=== PATIENT | female | born 1950 | race Hispanic/Latino ===

== ENCOUNTER → 2017-11-03 | Outpatient (CLI) | payer MEDICARE ==
[~2017-11-03] MED LIST: ASPI-1197 PO; LEVO25TA54 PO; OMEP40CA37 PO; ROSU5TAB PO
== END | disposition home or self-care (01) ==
LOC: RAH 08:22
PROVIDERS: ATTEND Internal Medicine Cardiovascular Disease
DX: R00.2 Palpitations (principal); R07.9 Chest pain, unspecified
CPT/HCPCS: 78452; 93017; A9500 ×2

== ENCOUNTER 2020-06-13 17:32 | Emergency (ER) | payer MEDICARE ==
[~2020-06-13 17:32] MED LIST changes: +OMEP40CA13 PO; -OMEP40CA37 PO
[2020-06-13 18:00] LABS: BASOPHILS % (AUTO) 0.4 % (0.0-5.0); EOSINOPHILS % (AUTO) 1.7 % (0.0-8.0); HEMATOCRIT 39.5 % (36-48); LYMPHOCYTES % (AUTO) 37.7 % (21.0-51.0); MEAN CORPUSCULAR HEMOGLOBIN 28.8 pg (27.0-33.0); MEAN CORPUSCULAR HGB CONC 33.4 g/dL (32.0-36.0); MEAN CORPUSCULAR VOLUME 86.1 fL (79-99); MONOCYTES % (AUTO) 5.4 % (3.0-13.0); NEUTROPHILS % (AUTO) 54.5 % (40.0-77.0); PLATELET COUNT (AUTO) 321 K/uL (130-400); RED BLOOD CELL COUNT(AUTO) 4.59 MIL/uL (4.00-5.50); RED CELL DISTRIBUTION WIDTH 12.5 % (11.0-15.5); WHITE BLOOD COUNT (AUTO) 11.7 K/uL (4.8-10.8)
[2020-06-13] MEDS ORDERED: ASPIRIN 325MG EC TAB 325 MG TABLET.DR PO ONE (18:04)
[2020-06-13 18:13] LABS: CREATININE 0.8 mg/dL (0.5-1.5); POTASSIUM 3.2 mmol/L (3.5-5.1)
[2020-06-13 18:16] LABS: INR 0.95 (0.85-1.15); PARTIAL THROMBOPLASTIN TIME 22.9 SEC (26.3-35.5); PROTHROMBIN TIME 10.3 SEC (9.6-11.6)
[2020-06-13 18:17] LABS: ALBUMIN 3.8 g/dL (3.5-5.0); BILIRUBIN,TOTAL 0.2 mg/dL (0.2-1.0); TOTAL PROTEIN, SERUM 7.3 g/dL (6.0-8.3)
[2020-06-13] MEDS ORDERED: POTASSIUM CHLORIDE 10% ELIXIR 20 MEQ/15 ML UDCUP ONE (18:23)
== END 2020-06-13 18:51 | disposition home or self-care (01) ==
LOC: EDH 17:32
DX: R07.89 Other chest pain (principal); E87.6 Hypokalemia; R53.1 Weakness; E11.9 Type 2 diabetes mellitus without complications; E78.5 Hyperlipidemia, unspecified; Z88.8 Allergy status to other drugs, medicaments and biological substances; Z91.041 Radiographic dye allergy status
CPT/HCPCS: 36415; 71045; 80053; 82550; 84484; 85025; 85610; 85730; 93005

== ENCOUNTER 2020-09-29 05:52 | Day surgery (SDC) | payer MEDICARE ==
[2020-09-25 12:46] LABS: BASOPHILS % (AUTO) 0.7 % (0.0-5.0); EOSINOPHILS % (AUTO) 3.3 % (0.0-8.0); HEMATOCRIT 39.7 % (36-48); LYMPHOCYTES % (AUTO) 36.2 % (21.0-51.0); MEAN CORPUSCULAR HEMOGLOBIN 29.1 pg (27.0-33.0); MEAN CORPUSCULAR VOLUME 88.2 fL (79-99); MONOCYTES % (AUTO) 5.6 % (3.0-13.0); PLATELET COUNT (AUTO) 303 K/uL (130-400); RED CELL DISTRIBUTION WIDTH 12.7 % (11.0-15.5); WHITE BLOOD COUNT (AUTO) 5.5 K/uL (4.8-10.8)
[2020-09-25 12:48] LABS: APPEARANCE,URINE Clear (CLEAR); BILIRUBIN,URINE Negative (NEGATIVE); COLOR,URINE Yellow (YELLOW); GLUCOSE, URINE (UA) Negative (NEGATIVE); KETONES,URINE Negative (NEGATIVE); LEUKOCYTE ESTERASE ,URINE Small (NEGATIVE); NITRATE,URINE Negative (NEGATIVE); OCCULT BLOOD,URINE Negative (NEGATIVE); PH,URINE 6.5 (5.0-8.0); PROTEIN,URINE Negative (NEGATIVE); UROBILINOGEN,URINE 0.2 mg/dL (0.2-1.0)
[2020-09-25 12:58] LABS: CREATININE 0.7 mg/dL (0.5-1.5); POTASSIUM 3.8 mmol/L (3.5-5.1)
[2020-09-25 13:01] LABS: BACTERIA,URINE Few /HPF (None Seen); INR 1.04 (0.85-1.15); PROTHROMBIN TIME 11.3 SEC (9.6-11.6); RBC,URINE None Seen /HPF (0-1); SQUAMOUS EPITHELIAL CELL,UR Rare /HPF (0-2)
[2020-09-25 13:03] LABS: PARTIAL THROMBOPLASTIN TIME 27.1 SEC (26.3-35.5)
[2020-09-26 15:43] VITALS: BP 118/62
[~2020-09-29] VITALS: Ht 154.9 cm; Wt 64.5 kg
[2020-09-29] VITALS (10 sets, daily range): BP systolic 113–141; BP diastolic 48–65
[~2020-09-29 05:52] MED LIST changes: +BIOT10004 PO; +CALC600T15 PO; +CYAN250010 PO; +MULT-1192 PO; -OMEP40CA13 PO; +SODIUM CHLORIDE 0.9% 500ML 500 ML IV SCH; +VITA1CAP85 PO
[2020-09-29] MEDS ORDERED: SODIUM CHLORIDE 0.9% 1000ML 1,000 ML IV ONE (07:02)
[2020-09-29] MEDS ORDERED: BIVALIRUDIN 250 MG/VIAL IV ONE (07:14)
[2020-09-29] MEDS ORDERED: HEPARIN SODIUM 1000UNIT/ML 10ML VIAL ONE (07:14)
[2020-09-29] MEDS ORDERED: PRED20TA3 PO (07:14)
[2020-09-29] MEDS ORDERED: MONT10TA32 PO (07:14)
[2020-09-29] MEDS ORDERED: LIDOCAINE HCL 2% 20ML ONE (07:15)
[2020-09-29] MEDS ORDERED: NITROGLYCERIN 2 MG/VIAL VIAL IV ONE (07:15)
[2020-09-29] MEDS ORDERED: IOHEXOL-350 50ML VIAL IV ONE (07:15)
[2020-09-29] MEDS ORDERED: FENTANYL CITRATE PF 50 MCG/1 ML 2ML VIAL ONE (07:15)
[2020-09-29] MEDS ORDERED: MIDAZOLAM HCL 1 MG/ML 2ML VIAL ONE (07:15)
[2020-09-29] MEDS ORDERED: IOHEXOL-350 75 ML VIAL IV ONE (07:15)
[2020-09-29] MEDS ORDERED: IOHEXOL 350 MG/ML 100ML INFUS..BTL IV ONE (07:21)
[2020-09-29] MEDS ORDERED: METHYLPREDNISOLONE SOD SUCC 125MG/2ML VIAL ONE (07:38)
[2020-09-29] MEDS ORDERED: SODIUM CHLORIDE 0.9% 1000ML 1,000 ML IV SCH (08:15)
[2020-09-29] MEDS ORDERED: NITROGLYCERIN 0.4 MG SL TAB SL PRN (08:15)
[2020-09-29] MEDS ORDERED: HYDRALAZINE HCL 20 MG/ML VIAL IV PRN (08:15)
[2020-09-29] MEDS ORDERED: DEXTROSE 50%-WATER 50 ML DISP.SYRIN IV PRN (08:15)
[2020-09-29] MEDS ORDERED: GLUCAGON 1MG KIT 1 MG ML IM PRN (08:15)
[2020-09-29] MEDS ORDERED: ACETAMINOPHEN 325 MG TAB PO PRN (12:00)
== END 2020-09-29 13:00 ==
LOC: DAH 05:52
PROVIDERS: ATTEND Internal Medicine Cardiovascular Disease
DX: I25.119 Atherosclerotic heart disease of native coronary artery with unspecified angina pectoris (principal); I11.0 Hypertensive heart disease with heart failure; I50.32 Chronic diastolic (congestive) heart failure; E78.5 Hyperlipidemia, unspecified; F41.8 Other specified anxiety disorders; E03.9 Hypothyroidism, unspecified; Z79.899 Other long term (current) drug therapy; Z90.710 Acquired absence of both cervix and uterus; Z79.82 Long term (current) use of aspirin; Z98.890 Other specified postprocedural states; Z90.49 Acquired absence of other specified parts of digestive tract; Z79.890 Hormone replacement therapy; Z83.3 Family history of diabetes mellitus; Z82.49 Family history of ischemic heart disease and other diseases of the circulatory system; Z79.01 Long term (current) use of anticoagulants; Z88.8 Allergy status to other drugs, medicaments and biological substances; Z88.3 Allergy status to other anti-infective agents
CPT/HCPCS: 36415; 80048; 81001; 82948; 85025; 85610; 85730; 93460; A4215; A4216; A4221; A4222; A4223 ×3; A4606; A4663; A6260; C1760; C1894 ×3; J1644; J2250; J2930; J3010; J3490 ×2; J7030; Q9965; Q9967 ×2; 99156; 99157; J0583

== ENCOUNTER → 2023-01-06 | Outpatient (CLI) | payer MEDICARE ==
[~2023-01-06] MED LIST changes: +CALC-1125 PO; -CALC600T15 PO; -SODIUM CHLORIDE 0.9% 500ML 500 ML IV SCH
== END | disposition home or self-care (01) ==
LOC: SHCH 09:42
PROVIDERS: ATTEND Internal Medicine Cardiovascular Disease
DX: I87.2 Venous insufficiency (chronic) (peripheral) (principal); I87.1 Compression of vein; I73.9 Peripheral vascular disease, unspecified
CPT/HCPCS: 93925; 93970

== ENCOUNTER → 2024-06-26 | Outpatient (CLI) | payer MEDICARE ==
[2024-06-26 16:31] LABS: CREATININE 0.8 mg/dL (0.5-1.0); POTASSIUM 4.5 mmol/L (3.5-5.1)
== END | disposition home or self-care (01) ==
LOC: LAB 11:49
PROVIDERS: ATTEND Internal Medicine Cardiovascular Disease
DX: Z01.812 Encounter for preprocedural laboratory examination (principal); I25.798 Atherosclerosis of other coronary artery bypass graft(s) with other forms of angina pectoris
CPT/HCPCS: 36415; 80048

== ENCOUNTER → 2024-06-28 | Outpatient (CLI) | payer MEDICARE | END | disposition home or self-care (01) | LOC: SHCH 09:30 | PROVIDERS: ATTEND Internal Medicine Cardiovascular Disease | DX: R00.2 Palpitations (principal); R07.9 Chest pain, unspecified | CPT/HCPCS: 93306; 93356 ==

== ENCOUNTER → 2024-07-03 | Outpatient (CLI) | payer MEDICARE ==
[~2024-07-03] MED LIST changes: +IOHEXOL 350 MG/ML 100ML INFUS..BTL IV ONE
--- NOTE | 2024-07-03 11:45 | HMCIMG ---
CT OF THE CHEST WITH CONTRAST- CT Cardiac Angio co-interpretation This is done as part of the CT cardiac angiogram study. The interpretation of the coronary arteries will be done by deckhand tuna boat in a separate report. History: over-read Comparison: none CT Dose Index (CTDI): 77.90 mGy Dose Length Product (DLP): 493.40 total mGy PROTOCOL: Examination is done at 2.5 millimeter volumetric acquisition after contrast administration with Isovue 370, 100 cc IV, without complications. Photography is done at 5 millimeter thick intervals for the thorax. The examination begins above the heart and therefore the lung apices are incompletely included. The rest of the left lung is included but the right lung is only included up to its middle third. The periphery of the right lung is not included in the study. FINDINGS: The visualized part of the airway is preserved. The bony and soft tissue structures of the chest wall are unremarkable. The aorta is unremarkable. No mediastinal lymphadenopathy is seen. The lung windows demonstrate no worrisome pulmonary nodules, masses or infiltrates. There is no evidence of pulmonary embolism in the visualized lung segments. The upper abdominal views are unremarkable. Impression: No significant abnormalities identified.
== END | disposition home or self-care (01) ==
LOC: RAH 08:22
PROVIDERS: ATTEND Internal Medicine Cardiovascular Disease
DX: I25.10 Atherosclerotic heart disease of native coronary artery without angina pectoris (principal); R07.9 Chest pain, unspecified
CPT/HCPCS: 75574; Q9967